=== PATIENT | female | born 1990 | race African-American/Black ===

== ENCOUNTER 2021-06-23 05:53 | Emergency (ER) | payer BC ==
[2021-06-23 06:04] VITALS: BMI 34.7
[2021-06-23] MEDS ORDERED: ACETAMINOPHEN 1000 MG/100 ML VIAL (NON FORMULARY) IVPB ONE (06:13)
[2021-06-23] MEDS ORDERED: ACETAMINOPHEN INJECTION 100 ML IVPB ONE (06:22)
[2021-06-23 06:52] LABS: HEMATOCRIT 30.9 % (32.4-45.2); HEMOGLOBIN 10.9 GM/dL (10.7-15.3); MCH 30.5 pg (25.7-33.7); MCHC 35.4 g/dl (32.0-36.0); MEAN CELL VOLUME 86.1 fl (80-96); MEAN PLT VOLUME 7.6 fl (7.5-11.1); PLATELET COUNT 315 10^3/uL (134-434); RBC 3.59 M/mm3 (3.60-5.2); RDW 14.9 % (11.6-15.6); WHITE BLOOD COUNT 13.2 K/mm3 (4.0-10.0)
[2021-06-23] MEDS ORDERED: ONDANSETRON 4 MG/2 ML VIAL IVPUSH ONE (06:54)
[2021-06-23] MEDS ORDERED: SODIUM CHLORIDE 1,000 ML IV STA (06:54)
[2021-06-23] MEDS ORDERED: morphine CARPU-JECT 2 MG/1 ML DISP.SYRIN IVPUSH ONE (06:54)
[2021-06-23] MEDS ORDERED: ONDANSETRON 4 MG/2 ML VIAL ONE (07:02)
[2021-06-23] MEDS ORDERED: MORPHINE SULFATE 2 MG/ML VIAL ONE (07:02)
[2021-06-23 07:04] LABS: INR 0.92 (0.83-1.09); PROTHROMBIN TIME (PATIENT) 11.3 SEC (9.7-13.0)
[2021-06-23 07:07] LABS: ACTIVATED PTT 23.2 SECONDS (25.2-36.5)
[2021-06-23 07:09] LABS: CALCIUM 8.7 mg/dL (8.5-10.1)
[2021-06-23 07:13] LABS: CREATININE 0.7 mg/dL (0.55-1.3)
[2021-06-23 08:11] VITALS: TEMP 98.8
[2021-06-23] MEDS ORDERED: morphine CARPU-JECT 4 MG/1 ML DISP.SYRIN IVPUSH ONE (09:35)
[2021-06-23] MEDS ORDERED: morphine SULFATE 4 MG/ML VIAL ONE (09:46)
[2021-06-23 11:13] VITALS: BP 154/95; PULSE 94
== END 2021-06-23 11:18 | disposition home or self-care (01) ==
LOC: JER 05:53 → JERBED 08:27 → UNDOADMIN 08:27 → JER 11:18
DX: O03.9 Complete or unspecified spontaneous abortion without complication (principal); Z3A.16 16 weeks gestation of pregnancy
CPT/HCPCS: 36415; 76817-TC; 80048; 85027; 85610; 85730; 86850; 86900; 86901; 88307-TC; 93005; 93010; 99291; C9803; J0131; U0003; U0005